=== PATIENT | female | born 1935 | race Caucasian/White ===

== ENCOUNTER 2022-08-06 12:27 | Inpatient (IN) | payer OTHER, MEDICAID ==
[~2022-08-06] VITALS: Ht 167.6 cm; Wt 63.5 kg
[2022-08-06 12:32] VITALS: BP 147/90
[2022-08-06 14:21] LABS: BASOPHILS % (AUTO) 0.6 % (0.0-2.0); EOSINOPHILS # (AUTO) 0.2 K/uL (0-0.4); EOSINOPHILS % (AUTO) 3.7 % (0.0-4.0); HEMATOCRIT 42.7 % (36-48); HEMOGLOBIN 14.9 g/dL (12.0-16.0); LYMPHOCYTES # (AUTO) 1.1 K/uL (2.5-16.5); LYMPHOCYTES % (AUTO) 17.5 % (20.5-51.1); MEAN CORPUSCULAR HEMOGLOBIN 33 pg (27-31); MEAN CORPUSCULAR HGB CONC 35 g/dL (33-37); MEAN CORPUSCULAR VOLUME 93.4 fL (80-94); MONOCYTES # (AUTO) 0.6 K/uL (0.8-1.0); MONOCYTES % (AUTO) 9.3 % (1.7-9.3); NEUTROPHILS # (AUTO) 4.5 K/uL (1.8-7.7); NEUTROPHILS % (AUTO) 68.9 % (42.2-75.2); PLATELET COUNT (AUTO) 174 K/uL (140-450); RED BLOOD CELL COUNT(AUTO) 4.57 MIL/uL (4.20-5.40); RED CELL DISTRIBUTION WIDTH 12.9 % (11.6-13.7); WHITE BLOOD COUNT (AUTO) 6.6 K/uL (4.8-10.8)
[2022-08-06 14:51] LABS: ALBUMIN 3.2 g/dL (3.4-5.0); ANION GAP 12.4 (8-16); ASPARTATE AMINOTRANSFERASE 15 U/L (15-37); CARBON DIOXIDE 28.8 mmol/L (21-32); CHLORIDE 109 mmol/L (98-107); CREATININE 0.9 mg/dL (0.6-1.3); GLUCOSE 99 mg/dL (74-106); POTASSIUM 3.2 mmol/L (3.5-5.1); SODIUM SERUM 147 mmol/L (136-145); TOTAL BILIRUBIN 1.6 mg/dL (0.0-1.0); UREA NITROGEN, BLOOD 26 mg/dL (7-18)
[2022-08-06 15:18] LABS: APPEARANCE,URINE CLEAR (CLEAR); BILIRUBIN,URINE NEGATIVE (NEGATIVE); BLOOD, URINE 2+ (NEGATIVE); COLOR,URINE YELLOW (YELLOW); LEUKOCYTE ESTERASE ,URINE NEGATIVE (NEGATIVE); NITRITE, URINE NEGATIVE (NEGATIVE); UGLUCOSE NEGATIVE (NEGATIVE)
[2022-08-06 15:37] LABS: RBC,URINE 11-20 (MOD) /HPF (0-5); WBC,URINE 0-5 /HPF (0-5)
[2022-08-06 15:38] LABS: OTHER CASTS, URINE None Seen /LPF (None Seen)
[2022-08-06] MEDS ORDERED: NACL 0.9% 1,000 ML IV ONE ×2 (16:00→16:15)
[2022-08-06] MEDS ORDERED: AMLO-315 PO (16:42)
[2022-08-06] MEDS ORDERED: MEMA5TAB PO (16:42)
[2022-08-06] MEDS ORDERED: QUET25TA PO (16:42)
[2022-08-06] MEDS ORDERED: PANT20EC PO (16:42)
[2022-08-06] MEDS ORDERED: LATA7.5D OP (16:42)
[2022-08-06] MEDS ORDERED: LEVO75TA4 PO (16:42)
[2022-08-07] MEDS ORDERED: ACETAMINOPHEN 325 MG TAB PO PRN (00:30)
[2022-08-07] MEDS: NACL 0.9% 1,000 ML IV SCH ×2 (00:30→20:30)
[2022-08-07] MEDS ORDERED: MECLIZINE 25 MG TAB PO PRN (00:30)
[2022-08-07] MEDS ORDERED: HYDROcodone/APAP 7.5/325 MG 1 TAB PO PRN (00:30)
[2022-08-07] MEDS ORDERED: ONDANSETRON 4 MG/2 ML VIAL IVP PRN (00:30)
[2022-08-07 01:55] LABS: CHOL/HDL RATIO 2.9 (1-4.5); THYROID STIMULATING HORMONE 0.16 uIU/mL (0.34-3.74)
[2022-08-07] MEDS ORDERED: LORazepam 2 MG/ML VIAL IM/IVP PRN (02:30)
[2022-08-07] MEDS ORDERED: HALOPERIDOL IM 5 MG/ML VIAL IM SCH (02:30)
[2022-08-07 02:39] LABS: PROTHROMBIN TIME 10.4 secs (10.8-13.4)
[2022-08-07 04:00] VITALS: BP 130/65
[2022-08-07] MEDS: LEVOTHYROXINE 0.075 MG TAB PO SCH (06:29)
[2022-08-07 07:05] LABS: BARBITURATE, URINE NEGATIVE ng/ml (NEG <=200); BENZODIAZEPINE, URINE NEGATIVE ng/mL (NEG <=200); CANNABINOID, URINE NEGATIVE ng/mL (NEG <=50); COCAINE, URINE NEGATIVE ng/mL (NEG <=300); OPIATE, URINE NEGATIVE ng/mL (NEG <=2000); PHENCYCLIDINE SCREEN,URINE NEGATIVE ng/mL (NEG <=25)
[2022-08-07 08:00] VITALS: BP 128/74
[2022-08-07] MEDS ORDERED: PANTOPRAZOLE SODIUM PO SCH (09:00)
[2022-08-07] MEDS: MEMANTINE 10 MG TAB PO SCH (09:00)
[2022-08-07] MEDS: amLODIPine 5 MG TAB PO SCH (09:00)
[2022-08-07] MEDS: ATORVASTATIN 20 MG TAB PO SCH (09:00)
[2022-08-07] MEDS: DOCUSATE SODIUM 100 MG GELCAP PO SCH ×2 (09:00→20:31)
[2022-08-07] MEDS ORDERED: ATORVASTATIN PO SCH (09:00)
[2022-08-07] MEDS ORDERED: AMLODIPINE PO SCH (09:00)
[2022-08-07] MEDS: PANTOPRAZOLE 40 MG INJ VIAL IVP SCH (09:00)
[2022-08-07 09:21] LABS: BASOPHILS % (AUTO) 0.5 % (0.0-2.0); EOSINOPHILS # (AUTO) 0.1 K/uL (0-0.4); EOSINOPHILS % (AUTO) 1.5 % (0.0-4.0); HEMATOCRIT 43.9 % (36-48); LYMPHOCYTES # (AUTO) 1.1 K/uL (2.5-16.5); LYMPHOCYTES % (AUTO) 12.7 % (20.5-51.1); MEAN CORPUSCULAR HEMOGLOBIN 32 pg (27-31); MEAN CORPUSCULAR HGB CONC 34 g/dL (33-37); MEAN CORPUSCULAR VOLUME 93.7 fL (80-94); MONOCYTES # (AUTO) 0.7 K/uL (0.8-1.0); NEUTROPHILS # (AUTO) 6.6 K/uL (1.8-7.7); NEUTROPHILS % (AUTO) 77.3 % (42.2-75.2); PLATELET COUNT (AUTO) 173 K/uL (140-450); RED BLOOD CELL COUNT(AUTO) 4.69 MIL/uL (4.20-5.40); WHITE BLOOD COUNT (AUTO) 8.5 K/uL (4.8-10.8)
[2022-08-07 10:41] LABS: ANION GAP 13.2 (8-16); CHLORIDE 107 mmol/L (98-107); CREATININE 0.9 mg/dL (0.6-1.3); GLUCOSE 99 mg/dL (74-106); POTASSIUM 3.2 mmol/L (3.5-5.1); SODIUM SERUM 147 mmol/L (136-145); UREA NITROGEN, BLOOD 23 mg/dL (7-18)
[2022-08-07] MEDS ORDERED: POTASSIUM CHLORIDE 10 MEQ TABER PO SCH (11:55)
[2022-08-07 12:00] VITALS: BP 128/62
[2022-08-07 16:00] VITALS: BP 136/65
[2022-08-07] MEDS ORDERED: QUEtiapine FUMARATE 25 MG TAB PO SCH (21:00)
[2022-08-08] MEDS: LEVOTHYROXINE 0.075 MG TAB PO SCH (06:30)
[2022-08-08 07:33] LABS: BASOPHILS % (AUTO) 0.5 % (0.0-2.0); EOSINOPHILS # (AUTO) 0.1 K/uL (0-0.4); EOSINOPHILS % (AUTO) 1.7 % (0.0-4.0); HEMATOCRIT 42.7 % (36-48); HEMOGLOBIN 14.5 g/dL (12.0-16.0); LYMPHOCYTES # (AUTO) 1.2 K/uL (2.5-16.5); LYMPHOCYTES % (AUTO) 14.6 % (20.5-51.1); MEAN CORPUSCULAR HEMOGLOBIN 32 pg (27-31); MEAN CORPUSCULAR HGB CONC 34 g/dL (33-37); MEAN CORPUSCULAR VOLUME 93.4 fL (80-94); MONOCYTES # (AUTO) 0.7 K/uL (0.8-1.0); MONOCYTES % (AUTO) 8.4 % (1.7-9.3); NEUTROPHILS % (AUTO) 74.8 % (42.2-75.2); PLATELET COUNT (AUTO) 156 K/uL (140-450); RED BLOOD CELL COUNT(AUTO) 4.57 MIL/uL (4.20-5.40); RED CELL DISTRIBUTION WIDTH 12.9 % (11.6-13.7)
[2022-08-08 07:49] LABS: ANION GAP 15.3 (8-16); CARBON DIOXIDE 26.2 mmol/L (21-32); CHLORIDE 103 mmol/L (98-107); CREATININE 1.3 mg/dL (0.6-1.3); GLUCOSE 136 mg/dL (74-106); POTASSIUM 3.5 mmol/L (3.5-5.1); SODIUM SERUM 141 mmol/L (136-145); UREA NITROGEN, BLOOD 30 mg/dL (7-18)
[2022-08-08 08:00] VITALS: BP 136/65
[2022-08-08 08:07] LABS: MAGNESIUM 1.7 mg/dL (1.8-2.4); PHOSPHORUS 3.7 mg/dL (2.5-4.9)
[2022-08-08] MEDS: PANTOPRAZOLE 40 MG INJ VIAL IVP SCH (08:29)
[2022-08-08] MEDS ORDERED: MAGNESIUM OXIDE 400 MG TAB PO SCH (09:19)
[2022-08-08] MEDS: DOCUSATE SODIUM 100 MG GELCAP PO SCH (09:38)
[2022-08-08] MEDS: ATORVASTATIN 20 MG TAB PO SCH (09:39)
[2022-08-08] MEDS: amLODIPine 5 MG TAB PO SCH ×2 (09:40→10:17)
[2022-08-08] MEDS: MEMANTINE 10 MG TAB PO SCH (09:40)
[2022-08-08] MEDS ORDERED: ONDANSETRON 4 MG TAB PO PRN (11:35)
[2022-08-08 11:58] VITALS: BP 118/68
[2022-08-08 12:00] VITALS: BP 124/69
[2022-08-09] MEDS ORDERED: PANTOPRAZOLE 40 MG TABEC PO SCH (09:00)
== END 2022-08-08 14:46 | DRG 74 ==
LOC: MED 12:27 → MTU 16:17
DX: G90.9 Disorder of the autonomic nervous system, unspecified (principal); E87.0 Hyperosmolality and hypernatremia; E44.1 Mild protein-calorie malnutrition; E86.0 Dehydration; Z20.822 Contact with and (suspected) exposure to COVID-19; I10 Essential (primary) hypertension; F03.90 Unspecified dementia, unspecified severity, without behavioral disturbance, psychotic disturbance, mood disturbance, and anxiety; M26.643 Arthritis of bilateral temporomandibular joint; G40.909 Epilepsy, unspecified, not intractable, without status epilepticus; K21.9 Gastro-esophageal reflux disease without esophagitis; H40.9 Unspecified glaucoma; F20.9 Schizophrenia, unspecified; E78.5 Hyperlipidemia, unspecified; E03.9 Hypothyroidism, unspecified; E87.6 Hypokalemia; J01.30 Acute sphenoidal sinusitis, unspecified; Z68.22 Body mass index [BMI] 22.0-22.9, adult
CPT/HCPCS: 36415; 70450; 71045; 76770; 80048; 80053; 80305; 81001; 82140; 82150; 83036; 83690; 83735; 83880; 84100; 84443; 84484; 85025; 85610; 85730; 87081; 87086; 93005; 93880; 96360; 97116; 97163-GP; 97530; 99285; C9113; J1630; J7030; Q0092

== ENCOUNTER 2022-10-09 07:22 | Emergency (ER) | payer OTHER, MEDICAID ==
[~2022-10-09] VITALS: Ht 172.7 cm; Wt 66.2 kg
[~2022-10-09 07:22] MED LIST: AMLO-315 PO; LATA7.5D OP; LEVO75TA4 PO; MEMA5TAB PO; PANT20EC PO; QUET25TA PO
[2022-10-09 07:31] VITALS: BP 116/78
[2022-10-09] MEDS ORDERED: TETRACAINE HCL/PF 0.5% OPTH 4 ML BTL OP ONE (07:35)
[2022-10-09] MEDS ORDERED: FLUORESCEIN OPTH STRIP 1 MG OP ONE (07:35)
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
[2022-10-09] MEDS ORDERED: TOMOMETER 1 DEV DEV MC ONE (07:48)
--- NOTE | 2022-10-09 08:01 | NUR ---
Pts face cleaned of cream that was placed by facility.
--- NOTE | 2022-10-09 09:00 | NUR ---
Pt back from CT.
[2022-10-09 11:07] VITALS: BP 102/59
--- NOTE | 2022-10-09 11:09 | NUR ---
MD and construction secretary have made much effort to facilitate the pt [facility]. The pts living facility has been made aware of necessitation of making appointment and stated they will work on it.
--- NOTE | 2022-10-09 11:26 | NUR ---
spoke with pt and pts facility about dc. Transport from facility arrived for pt. Vss, no ss of acute distress, breathing equal and unlabored, speech clear, a/o x 2 (baseline for pt). Paperwork and dc packet given to jitney driver. Pt escorted by emt and myself to van, left without incident.
== END 2022-10-09 11:20 | disposition home or self-care (01) ==
LOC: MED 07:22
DX: S00.11XA Contusion of right eyelid and periocular area, initial encounter (principal); I10 Essential (primary) hypertension; K21.9 Gastro-esophageal reflux disease without esophagitis; F03.90 Unspecified dementia, unspecified severity, without behavioral disturbance, psychotic disturbance, mood disturbance, and anxiety; E78.5 Hyperlipidemia, unspecified; Z79.899 Other long term (current) drug therapy; Y04.2XXA Assault by strike against or bumped into by another person, initial encounter; Y93.89 Activity, other specified; Y92.89 Other specified places as the place of occurrence of the external cause; Y99.8 Other external cause status
CPT/HCPCS: 70450; 70480; 99284

== ENCOUNTER 2022-12-08 07:57 | Emergency (ER) | payer OTHER, MEDICAID ==
[~2022-12-08] VITALS: Ht 157.5 cm; Wt 54.4 kg
[2022-12-08 08:04] VITALS: BP 131/76
[2022-12-08] MEDS ORDERED: ACETAMINOPHEN 325 MG TAB PO ONE (08:30)
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
--- NOTE | 2022-12-08 09:05 | NUR ---
patient back from ct scan.
[2022-12-08] MEDS ORDERED: ACETAMINOPHEN 325 MG TAB ONE (10:27)
[2022-12-08 10:50] LABS: BASOPHILS % (AUTO) 0.5 % (0.0-2.0); EOSINOPHILS # (AUTO) 0.2 K/uL (0-0.4); EOSINOPHILS % (AUTO) 3.3 % (0.0-4.0); HEMATOCRIT 40.3 % (36-48); HEMOGLOBIN 13.7 g/dL (12.0-16.0); LYMPHOCYTES # (AUTO) 1.2 K/uL (2.5-16.5); LYMPHOCYTES % (AUTO) 16.6 % (20.5-51.1); MEAN CORPUSCULAR HEMOGLOBIN 32 pg (27-31); MEAN CORPUSCULAR HGB CONC 34 g/dL (33-37); MEAN CORPUSCULAR VOLUME 94.3 fL (80-94); MONOCYTES # (AUTO) 0.6 K/uL (0.8-1.0); MONOCYTES % (AUTO) 8.7 % (1.7-9.3); NEUTROPHILS # (AUTO) 5.2 K/uL (1.8-7.7); NEUTROPHILS % (AUTO) 70.9 % (42.2-75.2); PLATELET COUNT (AUTO) 175 K/uL (140-450); RED BLOOD CELL COUNT(AUTO) 4.27 MIL/uL (4.20-5.40); RED CELL DISTRIBUTION WIDTH 13.8 % (11.6-13.7); WHITE BLOOD COUNT (AUTO) 7.3 K/uL (4.8-10.8)
[2022-12-08 11:04] LABS: ALBUMIN 3.3 g/dL (3.4-5.0); ANION GAP 12.7 (8-16); ASPARTATE AMINOTRANSFERASE 17 U/L (15-37); CARBON DIOXIDE 26.8 mmol/L (21-32); CHLORIDE 110 mmol/L (98-107); GLUCOSE 106 mg/dL (74-106); POTASSIUM 3.5 mmol/L (3.5-5.1); PROTHROMBIN TIME 10.7 secs (10.8-13.4); SODIUM SERUM 146 mmol/L (136-145); UREA NITROGEN, BLOOD 23 mg/dL (7-18)
[2022-12-08] MEDS ORDERED: AMOX-999 PO (11:39)
[2022-12-08 13:10] VITALS: BP 131/76
--- NOTE | 2022-12-08 13:10 | NUR ---
Patient discharged with v/s stable. Written and verbal after care instructions given and explained. Patient alert, oriented and verbalized understanding of instructions. [facility] with to [facility]. All questions addressed prior to discharge. ID band removed. Patient advised to follow up with PMD. Rx of AMOXICILLIN (SENT) given. Patient educated on indication of medication including possible reaction and side effects. Opportunity to ask questions provided and answered.
== END 2022-12-08 13:10 | disposition home or self-care (01) ==
LOC: MED 07:57
DX: S60.221A Contusion of right hand, initial encounter (principal); S60.211A Contusion of right wrist, initial encounter; S00.212A Abrasion of left eyelid and periocular area, initial encounter; S00.81XA Abrasion of other part of head, initial encounter; K21.9 Gastro-esophageal reflux disease without esophagitis; I10 Essential (primary) hypertension; F03.90 Unspecified dementia, unspecified severity, without behavioral disturbance, psychotic disturbance, mood disturbance, and anxiety; E78.5 Hyperlipidemia, unspecified; Z79.899 Other long term (current) drug therapy; Z79.2 Long term (current) use of antibiotics; Y04.8XXA Assault by other bodily force, initial encounter; Y93.89 Activity, other specified; Y92.89 Other specified places as the place of occurrence of the external cause; Y99.8 Other external cause status
CPT/HCPCS: 36415; 70450; 71045; 73110; 73130; 80053; 85025; 85610; 85730; 90471; 90715; 99285